=== PATIENT | male | born 1945 | race Two or more races ===

== ENCOUNTER 2017-01-12 14:09 | Emergency (ER) | payer OTHER ==
[2017-01-12 14:20] VITALS: BP 126/69; PULSE 73; TEMP 98.2; BMI 28.3
[2017-01-12] MEDS ORDERED: ACETAMINOPHEN WITH CODEINE 300MG/30MG TABLET PO ONE (15:18)
[2017-01-12] MEDS ORDERED: PSEUDOEPHEDRINE HCL 30 MG TABLET PO ONE (15:18)
[2017-01-12] MEDS ORDERED: guaiFENesin 200 MG/10 ML 10 ML UNIT-DOSE CUPS PO ONE (15:24)
[2017-01-12] MEDS ORDERED: guaiFENesin 200 MG/10 ML 10 ML UNIT-DOSE CUPS ONE (15:29)
[2017-01-12] MEDS ORDERED: PSEUDOEPHEDRINE HCL 60 MG TABLET ONE (15:29)
--- NOTE | 2017-01-12 15:52 | PDOC ---
History of Present Illness - General Chief Complaint: Cold Symptoms Stated Complaint: SORE THROAT Time Seen by Provider: 01/12/17 15:16 History Source: Patient Exam Limitations: No Limitations - History of Present Illness Initial Comments: 01/12/17 15:47 CHIEF COMPLAINT: Throat pain HISTORY OF PRESENT ILLNESS: This is a 69 year old female with a history of HTN and hypercholesterolemia who presents for evaluation of right ear pain, throat pain, dry cough, bilateral eye redness/itching/discharge, and nasal congestion. Symptoms started about one week ago after returning from [place]. Her is being seen here with similar symptoms. She denies fevers/chills, chest pain, shortness of breath, or any other symptoms. V/s on arrival are unremarkable. Past History - Travel Traveled outside of the country in the last 30 days: Yes If so, where?: [facility] - Past Medical History Allergies/Adverse Reactions: Allergies Allergy/AdvReac Type Severity Reaction Status Date / Time No Known Allergies Allergy Verified 01/12/17 14:17 Home Medications: Ambulatory Orders Meclizine HCl [Bonine] 25 mg PO Q8H PRN #30 tab 04/11/15 Primidone [Mysoline] 250 mg PO DAILY 03/06/16 Azithromycin [Zithromax Tri-Roberto (3 DAYS) -] 500 mg PO DAILY #3 tablet 01/12/17 Other medical history: DENIES. - Immunization History Immunization Up to Date: Yes - Psycho/Social/Smoking Cessation Hx Anxiety: No Suicidal Ideation: No Smoking History: Never smoked Have you smoked in the past 12 months: No Hx Alcohol Use: No Drug/Substance Use Hx: No Substance Use Type: None Review of Systems - Review of Systems Constitutional: No: Chills, Fever, Night Sweats, Unexplained wgt Loss HEENTM: Yes: Ear Pain (left) Respiratory: Yes: Cough (dry). No: Shortness of Breath, SOB with Exertion Cardiac (ROS): No: Chest Pain, Edema, Palpitations ABD/GI: No: Symptoms Reported : No: Symptoms Reported Musculoskeletal: No: Symptoms Reported Neurological: No: Symptoms reported *Physical Exam - Vital Signs Last Vital Signs Temp Pulse Resp BP Pulse Ox 98.2 F 73 18 126/69 98 01/12/17 14:17 01/12/17 14:17 01/12/17 14:17 01/12/17 14:17 01/12/17 14:17 - Physical Exam General Appearance: Yes: Nourished, Appropriately Dressed HEENT: positive: Pharyngeal Erythema, Nasal Congestion, Rhinorrhea. negative: Tonsillar Exudate, TM Bulging, TM Erythema Neck: positive: Supple Respiratory/Chest: positive: Lungs Clear, Normal Breath Sounds Cardiovascular: positive: Regular Rhythm, Regular Rate, S1, S2 Gastrointestinal/Abdominal: positive: Soft. 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, Fully Oriented, Alert ED Treatment Course - Medications Given in the ED: ED Medications Discontinued Medications Generic Name Dose Route Start Last Admin Trade Name Maryana PRN Reason Stop Dose Admin Acetaminophen/Codeine Phosphate 1 tab 01/12/17 15:18 01/12/17 15:38 Tylenol # 3 - PO 01/12/17 15:19 Not Given ONCE ONE Guaifenesin 10 ml 01/12/17 15:24 01/12/17 15:36 Robitussin - PO 01/12/17 15:25 10 ml ONCE ONE Administration Pseudoephedrine HCl 30 mg 01/12/17 15:18 01/12/17 15:36 Sudafed - PO 01/12/17 15:19 30 mg ONCE ONE Administration Medical Decision Making - Medical Decision Making 01/12/17 15:49 A/P: 69 year old male with multiple symptoms including ear pain, throat pain, nasal congestion, , and cough. 1. Flu swab 2. Rapid strep 3. Robitussin for cough 4. Sudafed for congestion 5. Tylenol for pain 6. Re-assess *DC/Admit/Observation/Transfer Diagnosis at time of Disposition: Bronchitis - Discharge Dispostion Disposition: HOME Condition at time of disposition: Stable - Prescriptions Prescriptions: Azithromycin [Zithromax Tri-Roberto (3 DAYS) -] 500 mg PO DAILY #3 tablet - Referrals Referrals: Sarah Barron [Primary Care Provider] - - Patient Instructions Printed Discharge Instructions: DI for Acute Bronchitis Additional Instructions: -Take antibiotics as prescribed -Use [id number] Sudafed as needed for congestion and Robitussin as needed for cough -Follow up with your primary care doctor -Return here for difficulty breathing or any other concerning symptoms - Post Discharge Activity
[2017-01-12] MEDS ORDERED: ACETAMINOPHEN 325 MG TABLET (FP) PO ONE (15:53)
[2017-01-12] MEDS ORDERED: ACETAMINOPHEN 325 MG TABLET (FP) ONE (15:58)
== END 2017-01-12 16:36 | disposition home or self-care (01) ==
LOC: JERFT 14:09
DX: J40 Bronchitis, not specified as acute or chronic (principal)
CPT/HCPCS: 87070; 87430; 87804; 99281-25

== ENCOUNTER 2017-01-16 09:22 | Emergency (ER) | payer OTHER ==
[2017-01-16 09:30] VITALS: BP 107/75; PULSE 84; TEMP 98.3; BMI 28.3
--- NOTE | 2017-01-16 10:02 | PDOC ---
History of Present Illness - General Chief Complaint: Cold Symptoms Stated Complaint: cough, want new prescription Time Seen by Provider: 01/16/17 09:52 History Source: Patient Exam Limitations: No Limitations - History of Present Illness Initial Comments: 01/16/17 09:56 Patient is a 71-year-old male, with no past medical history, was seen in the emergency department on 01/12/2017 for sore throat and cough patient was given a azithromycin 500 mg by mouth for 3 days, states that symptoms are still persisting unable to sleep at night because of cough. Reports that symptoms started after returning from [facility], Cough is productive with green sputum. Patient denies any fever, no nausea vomiting, no constipation or diarrhea. with similar symptoms. Past Medical History: Denies. Allergies: No known allergies Medications: Azithromycin Family History: Non-contributory Social History: Denies smoking, alcohol use, or IVDU Review of Systems GENERAL/CONSTITUTIONAL: No fever or chills. No weakness. No weight change. HEAD, EYES, EARS, NOSE AND THROAT: No change in vision. No ear pain or discharge. No sore throat. CARDIOVASCULAR: No chest pain or shortness of breath. RESPIRATORY: +Cough, no wheezing, or hemoptysis. GASTROINTESTINAL: No nausea, vomiting, diarrhea or constipation. No rectal bleeding. GENITOURINARY: No dysuria, frequency, or change in urination. MUSCULOSKELETAL: No joint or muscle swelling or pain. No neck or back pain. SKIN : No rash or easy bruising. NEUROLOGIC: No headache, vertigo, loss of consciousness, or loss of sensation. PSYCHIATRIC: No depression or anxiety. ENDOCRINE: No increased thirst. No abnormal weight change. HEMATOLOGIC/LYMPHATIC: No anemia, easy bleeding, or history of blood clots. ALLERGIC/IMMUNOLOGIC: No hives or skin allergy. No latex allergy. Physical Exam: GENERAL: The patient is awake, alert, and fully oriented, in no acute distress. EYES: Pupils equal, round and reactive to light, extraocular movements intact, sclera anicteric, conjunctiva clear. ENT: Ears normal, nares patent, oropharynx clear without exudates. Moist mucous membranes. No uvula deviation NECK: Normal range of motion, supple without lymphadenopathy, JVD, or masses. LUNGS: Breath sounds equal, clear to auscultation bilaterally. Bronchospasm when taking a deep breath, No wheezes, and no crackles. HEART: Regular rate and rhythm, normal S1 and S2 without murmur, rub or gallop. ABDOMEN: Soft, nontender, normoactive bowel sounds. No guarding, no rebound. No masses. No bruising or abrasions MUSCULOSKELETAL: Normal range of motion, no edema. No clubbing or cyanosis. No cords, erythema, or tenderness. No CVA Tenderness with fist. NEUROLOGICAL: Cranial nerves II through XII grossly intact. Normal speech, normal gait. SKIN: Warm, Dry, normal turgor, no rashes or lesions noted. 01/16/17 10:42 Past History - Past Medical History Allergies/Adverse Reactions: Allergies Allergy/AdvReac Type Severity Reaction Status Date / Time No Known Allergies Allergy Verified 01/16/17 09:30 Home Medications: Ambulatory Orders Meclizine HCl [Bonine] 25 mg PO Q8H PRN #30 tab 04/11/15 Primidone [Mysoline] 250 mg PO DAILY 03/06/16 Promethazine HCl [Phenergan Plain 6.25 MG/5 ML -] 5 ml PO TID #90 ml 01/16/17 Other medical history: denies - Immunization History Immunization Up to Date: Yes - Psycho/Social/Smoking Cessation Hx Anxiety: No Suicidal Ideation: No Smoking History: Never smoked Have you smoked in the past 12 months: No Information on smoking cessation initiated: No Hx Alcohol Use: No Drug/Substance Use Hx: No Substance Use Type: None *Physical Exam - Vital Signs Last Vital Signs Temp Pulse Resp BP Pulse Ox 98.3 F 84 18 107/75 98 01/16/17 09:27 01/16/17 09:27 01/16/17 09:27 01/16/17 09:27 01/16/17 09:27 ED Treatment Course - RADIOLOGY Radiology Studies Ordered: Category Date Time Status CHEST PA & LAT [RAD] Stat Radiology 01/16/17 09:55 Ordered Medical Decision Making - Medical Decision Making 01/16/17 09:59 A/P: Patient with persistent cough, denies sore throat, states that cough is keeping him up at night. Was given azithromycin 500 mg by mouth for 3 days and states that cough still persists. Patient has been afebrile, is concerned because fevers keeping him up at night 01/16/17 10:04 01/16/17 10:46 Chest x-rays negative for acute cardiopulmonary disease, no evidence of pneumonia. We will DC Patient with cough medicine, follow-up with primary care doctor if symptoms persist. If any fever, increased cough, or any other concerns return to ER *DC/Admit/Observation/Transfer Diagnosis at time of Disposition: Cough - Discharge Dispostion Disposition: HOME Condition at time of disposition: Good Admit: No - Prescriptions Prescriptions: Promethazine HCl [Phenergan Plain 6.25 MG/5 ML -] 5 ml PO TID #90 ml - Referrals Referrals: Sarah Barron [Primary Care Provider] - - Patient Instructions Printed Discharge Instructions: DI for Viral Upper Respiratory Infection -- Adult Additional Instructions: Your x-rays negative for pneumonia. Viral illness may persist for over a week or 2 Recommend follow-up with her primary care doctor if symptoms persist after 7 days from initial onset I have given you a prescription for cough medicine please take one hour prior to sleep
== END 2017-01-16 11:20 | disposition home or self-care (01) ==
LOC: JERFT 09:22
DX: R05 Cough (principal)
CPT/HCPCS: 71020-TC; 99281-25

== ENCOUNTER 2017-01-19 12:21 | Emergency (ER) | payer OTHER ==
[2017-01-19 12:28] VITALS: BP 109/68; PULSE 76; TEMP 98; BMI 28.3
--- NOTE | 2017-01-19 13:35 | PDOC ---
History of Present Illness - General Chief Complaint: RX Refill Stated Complaint: RX REFILL FOR COUGH Time Seen by Provider: 01/19/17 13:04 History Source: Patient Exam Limitations: No Limitations - History of Present Illness Initial Comments: 01/19/17 13:30 This is a 71-year-old male without significant past medical history who presents today with chronic cough lasting for more than one week. Reports the cough is worse in the morning and improves throughout the day. He was seen and evaluated in this emergency department and prescribed Phenergan cough syrup which relieved the cough and make patient feel better. He has an appointment with his primary doctor in February. He is requesting a refill of his Phenergan cough syrup until he can see his doctor then. Past History - Past Medical History Allergies/Adverse Reactions: Allergies Allergy/AdvReac Type Severity Reaction Status Date / Time No Known Allergies Allergy Verified 01/19/17 12:28 Home Medications: Ambulatory Orders Meclizine HCl [Bonine] 25 mg PO Q8H PRN #30 tab 04/11/15 Primidone [Mysoline] 250 mg PO DAILY 03/06/16 Promethazine HCl [Phenergan Plain 6.25 MG/5 ML -] 5 ml PO TID #90 ml 01/19/17 Other medical history: DENIES - Immunization History Immunization Up to Date: Yes - Psycho/Social/Smoking Cessation Hx Anxiety: No Suicidal Ideation: No Smoking History: Never smoked Have you smoked in the past 12 months: No Information on smoking cessation initiated: No Hx Alcohol Use: No Drug/Substance Use Hx: No Substance Use Type: None Review of Systems - Review of Systems Able to Perform ROS?: Yes Is the patient limited Turkmen proficient: No Constitutional: No: Symptoms Reported HEENTM: No: Symptoms Reported Respiratory: Yes: See HPI Cardiac (ROS): No: Symptoms Reported ABD/GI: No: Symptoms Reported : No: Symptoms Reported Musculoskeletal: No: Symptoms Reported Integumentary: No: Symptoms Reported Neurological: No: Symptoms reported Endocrine: No: Symptoms Reported *Physical Exam - Vital Signs Last Vital Signs Temp Pulse Resp BP Pulse Ox 98 F 76 18 109/68 98 01/19/17 12:26 01/19/17 12:26 01/19/17 12:26 01/19/17 12:26 01/19/17 12:26 - Physical Exam General Appearance: Yes: Appropriately Dressed. No: Apparent Distress HEENT: positive: EOMI, CATRACHITA Neck: positive: Trachea midline, Supple Respiratory/Chest: positive: Lungs Clear, Normal Breath Sounds. negative: Respiratory Distress, Accessory Muscle Use, Crackles, Rales, Wheezing Cardiovascular: positive: Regular Rhythm, Regular Rate, S1, S2. negative: Edema , JVD, Murmur Gastrointestinal/Abdominal: positive: Normal Bowel Sounds, Soft. 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 Reports the cough is worse in the morning and improves throughout the day. He was seen and evaluated in this emergency department and prescribed Phenergan cough syrup which relieved the cough and make patient feel better. He has an appointment with his primary doctor in February. He is requesting a refill of his Phenergan cough syrup until he can see his doctor then. He is refusing xrays and a complete evaluation of cough. P: Rx for phenergan discharge *DC/Admit/Observation/Transfer Diagnosis at time of Disposition: Cough - Discharge Dispostion Disposition: HOME Condition at time of disposition: Stable Admit: No - Prescriptions Prescriptions: Promethazine HCl [Phenergan Plain 6.25 MG/5 ML -] 5 ml PO TID #90 ml - Patient Instructions Printed Discharge Instructions: DI for Cough -- Adult
== END 2017-01-19 13:47 | disposition home or self-care (01) ==
LOC: JERFT 12:21
DX: R05 Cough (principal)
CPT/HCPCS: 99281-25

== ENCOUNTER 2017-05-26 10:39 | Emergency (ER) | payer OTHER ==
[2017-05-26 10:43] VITALS: TEMP 97.6; BMI 28.3
[2017-05-26] MEDS ORDERED: MECLIZINE HCL 25 MG TABLET (FP) PO ONE (11:39)
[2017-05-26 11:41] LABS: BASO % 0.7 % (0-2.0); EOS % 4.5 % (0-4.5); HEMATOCRIT 46.3 % (35.4-49); HEMOGLOBIN 15.4 GM/dL (11.7-16.9); MCH 30.8 pg (25.7-33.7); MCHC 33.2 g/dl (32.0-35.9); MEAN CELL VOLUME 92.6 fl (80-96); MEAN PLT VOLUME 8.1 fl (7.5-11.1); MONO % 9.7 % (3.8-10.2); NEUT % 59.1 % (42.8-82.8); PLATELET COUNT 207 K/MM3 (134-434); RDW 13.8 % (11.9-15.9); WHITE BLOOD COUNT 6.5 K/mm3 (4.0-10.0)
[2017-05-26 11:41] LABS: URINE APPEARANCE CLOUDY; URINE BILIRUBIN NEGATIVE (NEGATIVE); URINE BLOOD NEGATIVE (NEGATIVE); URINE COLOR AMBER; URINE GLUCOSE (UA) NEGATIVE (NEGATIVE); URINE KETONE NEGATIVE (NEGATIVE); URINE NITRITE NEGATIVE (NEGATIVE); URINE PROTEIN NEGATIVE (NEGATIVE); URINE UROBILINOGEN NEGATIVE mg/dL (0.2-1.0)
[2017-05-26 11:42] LABS: URINE LEUK ESTERASE 2+ (NEGATIVE)
[2017-05-26 11:43] LABS: URINE MUCUS MANY
[2017-05-26] MEDS ORDERED: MECLIZINE HCL 25 MG TABLET (FP) ONE (11:55)
--- NOTE | 2017-05-26 11:58 | PDOC ---
*Physical Exam - Vital Signs Last Vital Signs Temp Pulse Resp BP Pulse Ox 97.6 F 82 20 134/79 100 05/26/17 10:40 05/26/17 10:40 05/26/17 10:40 05/26/17 10:40 05/26/17 11:24 - Physical Exam Comments: 05/26/17 11:58 The patient was examined by [JULIET Holguin] under my direct supervision. I personally evaluated the patient. I concur with the above findings and the plan of care. ED Treatment Course - LABORATORY CBC & Chemistry Diagram: 05/26/17 11:20 05/26/17 11:20 - ADDITIONAL ORDERS Additional order review: Laboratory Results 05/26/17 11:12 Urine Color Charla Urine Appearance Cloudy Urine pH 5.0 D Ur Specific [place] 1.027 Urine Protein Negative Urine Glucose (UA) Negative Urine Ketones Negative Urine Blood Negative Urine Nitrite Negative Urine Bilirubin Negative Urine Urobilinogen Negative Ur Leukocyte Esterase 2+ H Urine WBC (Auto) 7 Urine RBC (Auto) 12 Urine Mucus Many 05/26/17 11:20 RBC 5.00 MCV 92.6 MCHC 33.2 RDW 13.8 MPV 8.1 Neutrophils % 59.1 Lymphocytes % 26.0 Monocytes % 9.7 Eosinophils % 4.5 Basophils % 0.7 *DC/Admit/Observation/Transfer - Referrals Referrals: Sarah Barron [Primary Care Provider] - - Patient Instructions - Post Discharge Activity
[2017-05-26] MEDS ORDERED: SODIUM CHLORIDE 500 ML IV STA (12:04)
--- NOTE | 2017-05-26 12:04 | PDOC ---
History of Present Illness - General Chief Complaint: Lightheaded Stated Complaint: WEAKNESS, DIZZINESS Time Seen by Provider: 05/26/17 11:17 History Source: Patient - History of Present Illness Timing/Duration: reports: other Severity: Yes: moderate Associated Symptoms: reports: trouble walking. denies: fever/chills, loss of consciousness, nausea/vomiting, paresthesia, ringing in ears, slurred speech, vision changes, weakness Past History - Past Medical History Allergies/Adverse Reactions: Allergies Allergy/AdvReac Type Severity Reaction Status Date / Time No Known Allergies Allergy Verified 05/26/17 10:43 Home Medications: Ambulatory Orders Meclizine HCl [Antivert -] 25 mg PO QID #28 tablet 05/26/17 COPD: No - Immunization History Immunization Up to Date: Yes - Suicide/Smoking/Psychosocial Hx Smoking History: Never smoked Have you smoked in the past 12 months: No Hx Alcohol Use: No Drug/Substance Use Hx: No Substance Use Type: None Review of Systems - Review of Systems Constitutional: No: Chills, Fever Respiratory: No: Shortness of Breath Cardiac (ROS): Yes: Lightheadedness. No: Chest Pain, Palpitations, Syncope ABD/GI: No: Nausea, Vomiting Neurological: Yes: Dizziness. No: Headache, Weakness *Physical Exam - Vital Signs Last Vital Signs Temp Pulse Resp BP Pulse Ox 97.6 F 82 20 134/79 100 05/26/17 10:40 05/26/17 10:40 05/26/17 10:40 05/26/17 10:40 05/26/17 11:24 - Physical Exam General Appearance: Yes: Appropriately Dressed. No: Apparent Distress HEENT: positive: Normal Voice Neck: positive: Supple Respiratory/Chest: positive: Lungs Clear, Normal Breath Sounds. negative: Respiratory Distress Cardiovascular: positive: Regular Rate, S1, S2 Gastrointestinal/Abdominal: positive: Soft. negative: Tender Extremity: positive: Normal Inspection Integumentary: positive: Dry, Warm Neurologic: positive: Fully Oriented, Alert, Normal Mood/Affect, Motor Strength 5/5, Finger to Nose. negative: Facial Droop (no nystagmus, Morgan intact, no drift, no ataxia), Confused, Disoriented Heart Score/ECG Review - ECG Intrepretation Comment:: 05/26/17 12:49 Twelve-lead EKG was performed and reviewed by me. There is normal sinus rhythm with a normal rate. The axis is normal. The intervals are normal. There are no ST or T wave abnormalities. Impression: Normal twelve-lead EKG ED Treatment Course - LABORATORY CBC & Chemistry Diagram: 05/26/17 11:20 05/26/17 11:20 - ADDITIONAL ORDERS Additional order review: Laboratory Results 05/26/17 11:12 Urine Color Charla Urine Appearance Cloudy Urine pH 5.0 D Ur Specific [place] 1.027 Urine Protein Negative Urine Glucose (UA) Negative Urine Ketones Negative Urine Blood Negative Urine Nitrite Negative Urine Bilirubin Negative Urine Urobilinogen Negative Ur Leukocyte Esterase 2+ H Urine WBC (Auto) 7 Urine RBC (Auto) 12 Urine Mucus Many 05/26/17 11:20 RBC 5.00 MCV 92.6 MCHC 33.2 RDW 13.8 MPV 8.1 Neutrophils % 59.1 Lymphocytes % 26.0 Monocytes % 9.7 Eosinophils % 4.5 Basophils % 0.7 - RADIOLOGY Radiology Studies Ordered: Category Date Time Status CHEST PA & LAT [RAD] Stat Radiology 05/26/17 11:19 Taken Medical Decision Making - Medical Decision Making 05/26/17 11:59 71-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 Patient reports lightheadedness that started 5 days ago, worse with positional change. Does not complain of room spinning specifically at this time, but states current symptoms similar to his previous vertigo. Also complaining of feeling off balance when he walks. No headache, nausea, vomiting, visual changes, focal weakness, chest pain or shortness of breath. No recent URI. Patient asymptomatic lying on stretcher at this time See exam Dizziness Multiple ED visits in past for same w/ neg CTs and tx w/ meclizine for vertigo Stable w no focal deficiyts -melissa check labs, orthostatics -trial of meclizine -no indication for neuroimaging at this time -reassess 05/26/17 12:03 05/26/17 13:30 Labs unremarkable. Patient reports feeling significantly better with meclizine and appears comfortable and tolerating a tray of food in ED. Will DC with prescription for meclizine and encourage PMD follow-up next week. Reasons to return discussed with patient and *DC/Admit/Observation/Transfer Diagnosis at time of Disposition: Dizziness - Discharge Dispostion Disposition: HOME Condition at time of disposition: Improved - Prescriptions Prescriptions: Meclizine HCl [Antivert -] 25 mg PO QID #28 tablet - Referrals Referrals: Sarah Barron [Primary Care Provider] - - Patient Instructions Printed Discharge Instructions: Vertigo Additional Instructions: Medication as directed and follow-up with your doctor next week. If symptoms worsen, return to ER immediately - Post Discharge Activity
[2017-05-26 12:07] LABS: ALBUMIN 3.6 g/dl (3.4-5.0); ANION GAP 7 (8-16); BILIRUBIN,TOTAL 0.6 mg/dL (0.2-1.0); BLOOD UREA NITROGEN 16 mg/dL (7-18); CHLORIDE 107 mmol/L (98-107); CO2 27 mmol/L (21-32); CREATININE 1.1 mg/dL (0.7-1.3); GLUCOSE,RANDOM 108 mg/dL (74-106); POTASSIUM 3.8 mmol/L (3.5-5.1); SGOT/AST 24 U/L (15-37); SGPT/ALT 37 U/L (12-78); SODIUM 141 mmol/L (136-145); TOT PROT 7.2 g/dl (6.4-8.2)
[2017-05-26 12:09] LABS: ALK PHOS 89 U/L (45-117)
[2017-05-26 14:09] VITALS: BP 108/69; PULSE 74
--- NOTE | 2017-05-26 16:29 | EKG ---
Test Reason : Blood Pressure : / mmHG Vent. Rate : 071 BPM Atrial Rate : 071 BPM P-R Int : 202 ms QRS Dur : 084 ms QT Int : 386 ms P-R-T Axes : 043 034 028 degrees QTc Int : 419 ms NORMAL SINUS RHYTHM LOW VOLTAGE QRS BORDERLINE ECG WHEN COMPARED WITH ECG OF 06-MAR-2016 04:08, NO SIGNIFICANT CHANGE WAS FOUND Confirmed by RAH OH MD ([id number]) on 05/26/2017 4:28:57 PM Referred By: Confirmed By:RAH OH MD
== END 2017-05-26 14:09 | disposition home or self-care (01) ==
LOC: JER 10:39
PROC: 3E0337Z Introduction of Electrolytic and Water Balance Substance into Peripheral Vein, Percutaneous Approach (ICD-10-PCS; principal; 2017-05-26)
DX: H81.10 Benign paroxysmal vertigo, unspecified ear (principal)
CPT/HCPCS: 36415; 71046-TC; 80053; 81003; 81015; 82550; 84484; 85025; 93005; 93010; 96360; 99283-25

== ENCOUNTER 2017-12-15 08:58 | Emergency (ER) | payer OTHER ==
[2017-12-15 09:03] VITALS: TEMP 98; BMI 26.7
--- NOTE | 2017-12-15 09:18 | PDOC ---
History of Present Illness - General Chief Complaint: Lightheaded Stated Complaint: DIZZINESS Time Seen by Provider: 12/15/17 09:18 History Source: Patient Exam Limitations: No Limitations - History of Present Illness Initial Comments: 12/15/17 10:07 CHIEF COMPLAINT: Dizziness HISTORY OF PRESENT ILLNESS: This is a 72-year-old male with a history of vertigo who presents complaining of sudden onset of dizziness ("room spinning") at 8 PM last night. This morning, he developed vomiting. Both dizziness and nausea have since subsided. He denies headache, visual changes, chest pain, shortness of breath, abdominal pain, or any other symptoms. Vital signs on arrival are unremarkable. REVIEW OF SYSTEMS: GENERAL/CONSTITUTIONAL: No fever or chills. No weakness. No weight change. HEAD, EYES, EARS, NOSE AND THROAT: No change in vision. No ear pain or discharge. No sore throat. CARDIOVASCULAR: No chest pain or palpitations. RESPIRATORY: No cough, wheezing, or shortness of breath. GASTROINTESTINAL: Nausea/vomiting. No diarrhea or constipation. GENITOURINARY: No dysuria, frequency, or change in urination. MUSCULOSKELETAL: No joint or muscle swelling or pain. No neck or back pain. SKIN: No rash or easy bruising. NEUROLOGIC: See HPI. PSYCHIATRIC: No depression or anxiety. ENDOCRINE: No increased thirst. No abnormal weight change. HEMATOLOGIC/LYMPHATIC: No anemia, easy bleeding, or history of blood clots. ALLERGIC/IMMUNOLOGIC: No hives or skin allergy. No latex allergy. PHYSICAL EXAM: GENERAL: The patient is awake, alert, and fully oriented, in no acute distress. HEAD: Normal with no signs of trauma. ENT: Pupils equal, round and reactive to light, extraocular movements intact, sclera anicteric, conjunctiva clear. Neck supple. LUNGS: Clear to auscultation bilaterally. Normal excursion. No respiratory distress or use of accessory muscles. CV: RRR, S1/S2, no MRG. Cap refill < 2 sec. ABDOMEN: Soft, non-distended, non-tender. EXTREMITIES: Normal range of motion, no edema. NEUROLOGICAL: Normal speech, normal gait. CN II-XII grossly intact. NIHSS=0. PSYCH: Normal mood, normal affect. SKIN: Warm, dry, normal turgor, no rashes or lesions noted. 12/15/17 10:08 Past History - Past Medical History Allergies/Adverse Reactions: Allergies Allergy/AdvReac Type Severity Reaction Status Date / Time No Known Allergies Allergy Verified 12/15/17 09:03 Home Medications: Ambulatory Orders Meclizine HCl [Antivert -] 25 mg PO QID PRN #20 tablet 12/15/17 Primidone 50 mg PO TID 12/15/17 COPD: No - Immunization History Immunization Up to Date: Yes - Suicide/Smoking/Psychosocial Hx Smoking History: Never smoked Have you smoked in the past 12 months: No Hx Alcohol Use: No Drug/Substance Use Hx: No Substance Use Type: None *Physical Exam - Vital Signs Last Vital Signs Temp Pulse Resp BP Pulse Ox 98 F 65 18 118/72 98 12/15/17 09:00 12/15/17 09:00 12/15/17 09:00 12/15/17 09:00 12/15/17 09:00 ED Treatment Course - LABORATORY CBC & Chemistry Diagram: 12/15/17 09:37 12/15/17 09:37 Medical Decision Making - Medical Decision Making 12/15/17 10:09 A/P: 72-year-old male with history of vertigo presenting with what he states are his typical vertigo symptoms. Does not have meclizine at home. Symptoms currently improved without intervention. No focal neurologic deficits. 1. EKG 2. Labs including CBC, CMP, troponin 3. IV fluids and Reglan for symptomatic relief 4. No indication for neuroimaging at this time. 12/15/17 12:02 EKG sinus omayra 56bpm, no ischemic changes Trop neg Patient feels well, orthostatics negative, ambulating unassisted, tolerating PO fluids Will rx meclizine Followup instructions and return precautions reviewed *DC/Admit/Observation/Transfer Diagnosis at time of Disposition: Vertigo - Discharge Dispostion Disposition: HOME Condition at time of disposition: Stable Decision to Admit order: No - Prescriptions Prescriptions: Meclizine HCl [Antivert -] 25 mg PO QID PRN #20 tablet PRN Reason: Vertigo - Referrals Referrals: Leisa Banegas MD [Primary Care Provider] - 3 days - Patient Instructions Printed Discharge Instructions: DI for Vertigo Additional Instructions: -Rest and stay well-hydrated -Take Meclizine as needed for vertigo symptoms -Follow up with Dr. Banegas early next week -Return for persistent dizziness, headaches, weakness, change in speech, chest pain, or any other concerning symptoms - Post Discharge Activity
[2017-12-15] MEDS ORDERED: METOCLOPRAMIDE HCL INJECTION 10 MG/2 ML VIAL IVPB ONE (09:28)
[2017-12-15] MEDS ORDERED: METOCLOPRAMIDE HCL INJECTION 10 MG/2 ML VIAL ONE (09:39)
[2017-12-15 10:03] LABS: EOS % 2.8 % (0-4.5); HEMATOCRIT 43.9 % (35.4-49); LYMPH % 19.3 % (8-40); MCH 31.5 pg (25.7-33.7); MCHC 34.1 g/dl (32.0-35.9); MEAN CELL VOLUME 92.2 fl (80-96); MEAN PLT VOLUME 8.2 fl (7.5-11.1); MONO % 7.3 % (3.8-10.2); NEUT % 69.6 % (42.8-82.8); PLATELET COUNT 206 K/MM3 (134-434); RBC 4.76 M/mm3 (4.00-5.60); RDW 13.8 % (11.9-15.9); WHITE BLOOD COUNT 5.6 K/mm3 (4.0-10.0)
[2017-12-15] MEDS ORDERED: SODIUM CHLORIDE 1,000 ML IV SCH (10:15)
[2017-12-15 10:32] LABS: INR 0.97 (0.83-1.09)
[2017-12-15 10:36] LABS: URINE APPEARANCE CLEAR; URINE BILIRUBIN NEGATIVE (<2.0 mg/dL); URINE COLOR YELLOW; URINE GLUCOSE (UA) NEGATIVE (NEGATIVE); URINE KETONE NEGATIVE (NEGATIVE); URINE LEUK ESTERASE TRACE (NEGATIVE); URINE NITRITE NEGATIVE (NEGATIVE); URINE PROTEIN NEGATIVE (NEGATIVE); URINE UROBILINOGEN NEGATIVE mg/dL (0.2-1.0)
[2017-12-15 10:44] LABS: ALBUMIN 3.5 g/dl (3.4-5.0); ANION GAP 9 (8-16); BLOOD UREA NITROGEN 11 mg/dL (7-18); CALCIUM 8.5 mg/dL (8.5-10.1); CHLORIDE 106 mmol/L (98-107); CO2 25 mmol/L (21-32); GLUCOSE,RANDOM 93 mg/dL (74-106); POTASSIUM 4.5 mmol/L (3.5-5.1); SODIUM 140 mmol/L (136-145)
[2017-12-15 10:47] LABS: ALK PHOS 98 U/L (45-117); BILIRUBIN,TOTAL 0.3 mg/dL (0.2-1.0); SGOT/AST 18 U/L (15-37); SGPT/ALT 24 U/L (12-78); TOT PROT 6.9 g/dl (6.4-8.2)
[2017-12-15 10:56] LABS: URINE MUCUS MANY
[2017-12-15 11:59] VITALS: BP 106/67; PULSE 53
--- NOTE | 2017-12-16 08:59 | EKG ---
Test Reason : Blood Pressure : / mmHG Vent. Rate : 056 BPM Atrial Rate : 056 BPM P-R Int : 198 ms QRS Dur : 082 ms QT Int : 410 ms P-R-T Axes : 028 021 029 degrees QTc Int : 395 ms SINUS BRADYCARDIA LOW VOLTAGE QRS BORDERLINE ECG WHEN COMPARED WITH ECG OF 26-MAY-2017 11:18, NO SIGNIFICANT CHANGE WAS FOUND Confirmed by SOWMYA LINDSAY MD ([id number]) on 12/16/2017 8:58:51 AM Referred By: Confirmed By:SOWMYA LINDSAY MD
== END 2017-12-15 12:13 | disposition home or self-care (01) ==
LOC: JER 08:58
PROC: 3E033GC Introduction of Other Therapeutic Substance into Peripheral Vein, Percutaneous Approach (ICD-10-PCS; principal; 2017-12-15)
PROC: 3E0337Z Introduction of Electrolytic and Water Balance Substance into Peripheral Vein, Percutaneous Approach (ICD-10-PCS; 2017-12-15)
DX: R42 Dizziness and giddiness (principal)
CPT/HCPCS: 36415; 80053; 81003; 81015; 84484; 85025; 85610; 93005; 93010; 99284-25; J7030

== ENCOUNTER 2018-07-19 09:48 | Emergency (ER) | payer OTHER ==
[2018-07-19 10:01] VITALS: BMI 26.5
--- NOTE | 2018-07-19 11:56 | PDOC ---
History of Present Illness <Abilio Caraballo - Last Filed: 07/19/18 13:05> - History of Present Illness Initial Comments: 07/19/18 12:06 The patient is a 72 year old male, with a significant PMH of benign essential tremor, vertigo, who presents to the emergency department with 3 days of vertigo. The patient states the episodes of vertigo occur when he is standing up and moving around, a/w nausea. The patient states he has history of vertigo for which he normally takes Meclizine with relief of his symptoms. He states initially, the vertigo did not respond to meclizine but eventually resolved last night after he took another dose of meclizine. The patient states at presentation, he is no longer experiencing the vertigo symptoms. However, the patient states he came to the ED today as he is concerned of future vertigo episodes. He states he did not see his PMD because they are in the [place] and it is faster to come here. The patient states his vertigo is associated with foods he eats such as chocolate or high salt content which he reports may be related to the past 2 days of vertigo. On review of symptoms, pt reports a 1 second episode of sternal, non radiating CP 2 days ago that has not recurred since then and self resolved. CP occurred while he was standing in the kitchen. The patient denies SOB or headache. Denies weakness or numbness. Denies fever, vomit, diarrhea and constipation. Denies dysuria, frequency, urgency and hematuria. Allergies: NKDA <Star Castrejon - Last Filed: 07/19/18 15:07> - General Chief Complaint: Lightheaded Stated Complaint: DIZZYNESS Time Seen by Provider: 07/19/18 10:41 Past History <Abilio Caraballo - Last Filed: 07/19/18 13:05> - Past Medical History COPD: No - Immunization History Immunization Up to Date: Yes - Suicide/Smoking/Psychosocial Hx Smoking History: Never smoked Have you smoked in the past 12 months: No Information on smoking cessation initiated: No Hx Alcohol Use: No Drug/Substance Use Hx: No Substance Use Type: None <Star Castrejon - Last Filed: 07/19/18 15:07> - Past Medical History Allergies/Adverse Reactions: Allergies Allergy/AdvReac Type Severity Reaction Status Date / Time No Known Allergies Allergy Verified 07/19/18 09:58 Home Medications: Ambulatory Orders Meclizine HCl [Antivert -] 25 mg PO QID PRN #20 tablet 12/15/17 Primidone 50 mg PO TID 12/15/17 Review of Systems - Review of Systems Comments:: 07/19/18 12:41 GENERAL/CONSTITUTIONAL: No fever or chills. No weakness. HEAD, EYES, EARS, NOSE AND THROAT: No change in vision. No ear pain or discharge. No sore throat. GASTROINTESTINAL: No nausea, vomiting, diarrhea or constipation. GENITOURINARY: No dysuria, frequency, or change in urination. CARDIOVASCULAR: No chest pain or shortness of breath. RESPIRATORY: No cough, wheezing, or hemoptysis. MUSCULOSKELETAL: No joint or muscle swelling or pain. No neck or back pain. SKIN: No rash NEUROLOGIC: No headache, vertigo, loss of consciousness, or change in strength/ sensation. ENDOCRINE: No increased thirst. No abnormal weight change. HEMATOLOGIC/LYMPHATIC: No anemia, easy bleeding, or history of blood clots. ALLERGIC/IMMUNOLOGIC: No hives or skin allergy. <Pavel Castrejonmna - Last Filed: 07/19/18 15:07> *Physical Exam - Vital Signs Last Vital Signs Temp Pulse Resp BP Pulse Ox 97.5 F L 85 16 97/66 98 07/19/18 09:58 07/19/18 09:58 07/19/18 09:58 07/19/18 09:58 07/19/18 09:58 <Abilio Caraballo - Last Filed: 07/19/18 13:05> - Vital Signs Last Vital Signs Temp Pulse Resp BP Pulse Ox 97.5 F L 85 16 97/66 98 07/19/18 09:58 07/19/18 09:58 07/19/18 09:58 07/19/18 09:58 07/19/18 09:58 - Physical Exam Comments: 07/19/18 12:41 GENERAL: Awake, alert, and fully oriented, in no acute distress HEAD: No signs of trauma EYES: PERRLA, EOMI, sclera anicteric, conjunctiva clear ENT: Auricles normal inspection, hearing grossly normal, nares patent, oropharynx clear without exudates. Moist mucosa NECK: Normal ROM, supple, no lymphadenopathy, JVD, or masses LUNGS: Breath sounds equal, clear to auscultation bilaterally. No wheezes, and no crackles HEART: Regular rate and rhythm, normal S1 and S2, no murmurs, rubs or gallops ABDOMEN: Soft, nontender, normoactive bowel sounds. No guarding, no rebound. No masses EXTREMITIES: Normal range of motion, no edema. No clubbing or cyanosis. No cords, erythema, or tenderness NEUROLOGICAL: Normal speech, cranial nerves intact, negative pronator drift, 5/ 5 strength in all 4 extremities, normal sensation to light touch in all 4 extremities, normal cerebellar exam, normal gait, normal reflexes and tone SKIN: Warm, Dry, normal turgor, no rashes or lesions noted. <Star Castrejon - Last Filed: 07/19/18 15:07> Moderate Sedation - Procedure Monitoring Vital Signs: Procedure Monitoring Vital Signs Temperature 97.5 F L 07/19/18 09:58 Pulse Rate 85 07/19/18 09:58 Respiratory Rate 16 07/19/18 09:58 Blood Pressure 97/66 07/19/18 09:58 O2 Sat by Pulse Oximetry (%) 98 07/19/18 09:58 <Abilio Caraballo - Last Filed: 07/19/18 13:05> - Procedure Monitoring Vital Signs: Procedure Monitoring Vital Signs Temperature 97.5 F L 07/19/18 09:58 Pulse Rate 85 07/19/18 09:58 Respiratory Rate 16 07/19/18 09:58 Blood Pressure 97/66 07/19/18 09:58 O2 Sat by Pulse Oximetry (%) 98 07/19/18 09:58 <Star Castrejon - Last Filed: 07/19/18 15:07> Heart Score/ECG Review - History History: Slightly suspicious - Electrocardiogram EKG: Normal - Age Age: >/= 65 - Risk Factors Based on the list above the patient has:: 1-2 risk factors - Troponin Troponin: </= normal limit - Score Heart Score - Total: 3 #1 07/19/18 11:56 Twelve-lead EKG was performed and reviewed by me. Normal sinus rhythm, rate 66. Normal axis and intervals. No ST elevations or T-wave inversions <Star Castrejon - Last Filed: 07/19/18 15:07> ED Treatment Course - LABORATORY CBC & Chemistry Diagram: 07/19/18 13:34 07/19/18 13:34 <Star Castrejon - Last Filed: 07/19/18 15:07> Medical Decision Making - Medical Decision Making 07/19/18 11:58 72yo M hx essential tremor and vertigo presents to the ED with resolved vertiginous sxs and resolved CP, presents for check up so that dizziness does not return. Vitals with borderline hypotension, however previous BP in low 100s systolic. Pt asymptomatic at this time with normal exam. In light of a few seconds of chest pain 2 days ago, plan to check labs including tropx1, and reassess. 07/19/18 14:59 Completely asymtomatic in the ED Currently eating sandwich, well appearing Rpt BP 116/70 Labs wnl Pt encouraged to f/u with PMD Pt requests DC home Return precautions given I discussed the physical exam findings, ancillary test results and final diagnoses with the patient. I answered all of the patient's questions. The patient was satisfied with the care received and felt comfortable with the discharge plan and treatment plan. The patient will call their primary care physician within 24 hours to arrange follow-up and will return to the Emergency Department with any new, persistent or worsening symptoms. <Star Castrejon - Last Filed: 07/19/18 15:07> *DC/Admit/Observation/Transfer - Attestations Scribe Attestion: 07/19/18 13:05 Documentation prepared by Abilio Caraballo, acting as medical record coder for Star Castrejon MD. <Abilio Caraballo - Last Filed: 07/19/18 13:05> - Discharge Dispostion Decision to Admit order: No - Attestations Physician Attestion: 07/19/18 15:01 I, Dr. Star Castrejon MD, attest that this document has been prepared under my direction and personally reviewed by me in its entirety. I further attest, that it accurately reflects all work, treatment, procedures and medical decision -making performed by me. <Star Castrejon - Last Filed: 07/19/18 15:07> Diagnosis at time of Disposition: Vertigo, Chest pain, Dizziness - Discharge Dispostion Disposition: HOME Condition at time of disposition: Stable - Patient Instructions Printed Discharge Instructions: DI for Vertigo, DI for Chest Pain Additional Instructions: Follow up with your primary doctor as discussed within 1-2 days Return to the emergency department if you have any new, worsening, or concerning symptoms Print Language: MALTESE - Post Discharge Activity
--- NOTE | 2018-07-19 14:14 | EKG ---
Test Reason : Blood Pressure : / mmHG Vent. Rate : 065 BPM Atrial Rate : 065 BPM P-R Int : 208 ms QRS Dur : 084 ms QT Int : 372 ms P-R-T Axes : 060 058 054 degrees QTc Int : 386 ms NORMAL SINUS RHYTHM BORDERLINE LOW VOLTAGE QRS WHEN COMPARED WITH ECG OF 15-DEC-2017 10:16, NO SIGNIFICANT CHANGE WAS FOUND Confirmed by JESSICA GARCIA MD ([id number]) on 07/19/2018 2:14:16 PM Referred By: Confirmed By:JESSICA GARCIA MD
[2018-07-19 14:32] LABS: BASO % 0.8 % (0-2.0); EOS % 4.1 % (0-4.5); HEMATOCRIT 48.3 % (35.4-49); HEMOGLOBIN 16.5 GM/dL (11.7-16.9); LYMPH % 30.2 % (8-40); MCH 32.8 pg (25.7-33.7); MCHC 34.2 g/dl (32.0-35.9); MEAN CELL VOLUME 95.9 fl (80-96); MONO % 8.6 % (3.8-10.2); NEUT % 56.3 % (42.8-82.8); PLATELET COUNT 176 K/MM3 (134-434); RBC 5.03 M/mm3 (4.00-5.60); RDW 13.7 % (11.9-15.9); WHITE BLOOD COUNT 5.9 K/mm3 (4.0-10.0)
[2018-07-19 14:33] LABS: ALBUMIN 3.6 g/dl (3.4-5.0); ALK PHOS 83 U/L (45-117); ANION GAP 4 MMOL/L (8-16); BILIRUBIN,TOTAL 0.4 mg/dL (0.2-1); BLOOD UREA NITROGEN 14 mg/dL (7-18); CALCIUM 8.5 mg/dL (8.5-10.1); CHLORIDE 106 mmol/L (98-107); CO2 28 mmol/L (21-32); GLUCOSE,RANDOM 86 mg/dL (74-106); POTASSIUM 4.3 mmol/L (3.5-5.1); SGOT/AST < 3 U/L (15-37); SGPT/ALT 24 U/L (13-61); SODIUM 137 mmol/L (136-145); TOT PROT 7.7 g/dl (6.4-8.2)
[2018-07-19 15:24] VITALS: BP 114/60; PULSE 67; TEMP 97.1
--- NOTE | 2018-07-22 10:56 | EKG ---
Test Reason : Blood Pressure : / mmHG Vent. Rate : 066 BPM Atrial Rate : 066 BPM P-R Int : 206 ms QRS Dur : 082 ms QT Int : 382 ms P-R-T Axes : 047 017 027 degrees QTc Int : 400 ms NORMAL SINUS RHYTHM NORMAL ECG WHEN COMPARED WITH ECG OF 19-JUL-2018 10:07, NO SIGNIFICANT CHANGE WAS FOUND Confirmed by ANTONIO GRIFFIN MD ([id number]) on 07/22/2018 10:55:52 AM Referred By: Confirmed By:ANTONIO GRIFFIN MD
== END 2018-07-19 15:24 | disposition home or self-care (01) ==
LOC: JER 09:48
DX: R42 Dizziness and giddiness (principal); R07.9 Chest pain, unspecified
CPT/HCPCS: 36415; 71045-TC-FY; 80053; 84484; 85025; 93005; 93010; 99282-25

== ENCOUNTER 2020-12-15 13:26 | Emergency (ER) | payer OTHER ==
[2020-12-15 13:32] VITALS: BMI 27.6
[2020-12-15] MEDS ORDERED: ONDANSETRON 4 MG/2 ML VIAL IVPUSH ONE (14:58)
[2020-12-15] MEDS ORDERED: METOCLOPRAMIDE HCL INJECTION 10 MG/2 ML VIAL IVPUSH ONE (14:59)
[2020-12-15] MEDS ORDERED: FAMOTIDINE 20 MG/50 ML IVPB 20 MG/50 ML MG IVPB ONE ×2 (14:59→15:11)
[2020-12-15] MEDS ORDERED: LACTATED RINGERS SOLUTION 1000 ML INFUS.BAG IV ONE (15:07)
[2020-12-15] MEDS ORDERED: METOCLOPRAMIDE HCL INJECTION 10 MG/2 ML VIAL ONE (15:11)
[2020-12-15 15:25] LABS: EOS % 2.4 % (0-4.5); HEMATOCRIT 44.8 % (35.4-49); HEMOGLOBIN 15.6 GM/dL (11.7-16.9); LYMPH % 27.1 % (8-40); MCHC 34.8 g/dl (32.0-35.9); MONO % 8.1 % (3.8-10.2); NEUT % 61.4 % (42.8-82.8); PLATELET COUNT 226 10^3/uL (134-434); RBC 4.72 M/mm3 (4.00-5.60); RDW 13.7 % (11.9-15.9)
[2020-12-15] MEDS ORDERED: MECLIZINE HCL 25 MG TABLET (FP) PO ONE (15:39)
[2020-12-15 15:47] LABS: ALBUMIN 3.8 g/dl (3.4-5.0); CALCIUM 8.5 mg/dL (8.5-10.1)
[2020-12-15 15:52] LABS: BILIRUBIN,TOTAL 0.8 mg/dL (0.2-1); TOT PROT 7.8 g/dl (6.4-8.2)
[2020-12-15] MEDS ORDERED: MECLIZINE HCL 25 MG TABLET (FP) ONE (16:18)
[2020-12-15 18:00] VITALS: BP 127/72; PULSE 53; TEMP 97.6
== END 2020-12-15 18:48 | disposition home or self-care (01) ==
LOC: JER 13:26
PROC: 3E033GC Introduction of Other Therapeutic Substance into Peripheral Vein, Percutaneous Approach (ICD-10-PCS; principal; 2020-12-15)
PROC: 3E033GC Introduction of Other Therapeutic Substance into Peripheral Vein, Percutaneous Approach (ICD-10-PCS; 2020-12-15)
DX: R10.13 Epigastric pain (principal); R42 Dizziness and giddiness; K80.20 Calculus of gallbladder without cholecystitis without obstruction
CPT/HCPCS: 36415; 74177-TC; 76705-TC; 80053; 83690; 85025; 93005; 93010; 99285-25; C9803; Q9967; U0003; U0005

== ENCOUNTER 2021-12-17 11:31 | Emergency (ER) | payer OTHER ==
[2021-12-17 11:48] VITALS: BP 105/64; PULSE 76; RESP 16; TEMP 98.1; BMI 28.3
[2021-12-17] MEDS ORDERED: MECLIZINE HCL 25 MG TABLET (FP) PO ONE (15:04)
[2021-12-17] MEDS ORDERED: MECLIZINE HCL 25 MG TABLET (FP) ONE (15:08)
[2021-12-17] MEDS ORDERED: SODIUM CHLORIDE 0.9% 500 ML INFUS.BAG IV ONE (15:22)
[2021-12-17 15:54] LABS: BASO % 1.6 % (0-2.0); EOS % 4.5 % (0-4.5); HEMATOCRIT 43.5 % (35.4-49); HEMOGLOBIN 14.6 GM/dL (11.7-16.9); LYMPH % 28.9 % (8-40); MCH 31.2 pg (25.7-33.7); MCHC 33.6 g/dl (32.0-35.9); MEAN CELL VOLUME 92.9 fl (80-96); MEAN PLT VOLUME 7.7 fl (7.5-11.1); MONO % 7.6 % (3.8-10.2); NEUT % 57.4 % (42.8-82.8); PLATELET COUNT 210 10^3/uL (134-434); RBC 4.68 M/mm3 (4.00-5.60); RDW 14.4 % (11.9-15.9); WHITE BLOOD COUNT 6.4 K/mm3 (4.0-10.0)
[2021-12-17 16:16] LABS: CALCIUM 8.8 mg/dL (8.5-10.1)
[2021-12-17 16:17] LABS: ALBUMIN 3.4 g/dl (3.4-5.0); BLOOD UREA NITROGEN 13.2 mg/dL (7-18)
[2021-12-17 16:20] LABS: CREATININE 0.9 mg/dL (0.55-1.3)
[2021-12-17 16:22] LABS: BILIRUBIN,TOTAL 0.5 mg/dL (0.2-1); TOT PROT 7.2 g/dl (6.4-8.2)
== END 2021-12-17 18:02 | disposition home or self-care (01) ==
LOC: JER 11:31
DX: R42 Dizziness and giddiness (principal)
CPT/HCPCS: 36415; 80053; 84132; 85025; 93005; 93010; 99284-25

== ENCOUNTER 2022-04-21 11:06 | Emergency (ER) | payer OTHER ==
[2022-04-21 11:37] VITALS: BP 130/77; PULSE 91; RESP 18; TEMP 98; BMI 26.5
== END 2022-04-21 16:00 | disposition home or self-care (01) ==
LOC: JER 11:06
DX: U07.1 COVID-19 (principal)
CPT/HCPCS: 0241U-QW; 71046-TC-FY; 99284-25

== ENCOUNTER 2022-09-18 09:45 | Emergency (ER) | payer OTHER ==
[2022-09-18 10:01] VITALS: TEMP 98.1; BMI 30.2
[2022-09-18] MEDS ORDERED: METOCLOPRAMIDE HCL INJECTION 10 MG/2 ML VIAL IVPB ONE (10:12)
[2022-09-18] MEDS ORDERED: SODIUM CHLORIDE 0.9% 500 ML INFUS.BAG IV ONE (10:12)
[2022-09-18] MEDS ORDERED: METOCLOPRAMIDE HCL INJECTION 10 MG/2 ML VIAL ONE (10:34)
[2022-09-18 11:24] LABS: BASO % 0.9 % (0-2.0); EOS % 5.1 % (0-4.5); HEMATOCRIT 40.7 % (35.4-49); HEMOGLOBIN 14.4 GM/dL (11.7-16.9); MCH 32.7 pg (25.7-33.7); MCHC 35.5 g/dl (32.0-35.9); MEAN CELL VOLUME 92.3 fl (80-96); MEAN PLT VOLUME 8.6 fl (7.5-11.1); MONO % 7.7 % (3.8-10.2); NEUT % 65.3 % (42.8-82.8); PLATELET COUNT 183 10^3/uL (134-434); RBC 4.41 M/mm3 (4.00-5.60); RDW 13.9 % (11.9-15.9); WHITE BLOOD COUNT 5.7 K/mm3 (4.0-10.0)
[2022-09-18 11:54] LABS: POTASSIUM 4.1 mmol/L (3.5-5.1)
[2022-09-18 11:57] LABS: ALBUMIN 3.4 g/dl (3.4-5.0); BLOOD UREA NITROGEN 15.3 mg/dL (7-18); CALCIUM 8.7 mg/dL (8.5-10.1); MAGNESIUM 2.1 mg/dL (1.8-2.4)
[2022-09-18 12:00] LABS: CREATININE 0.9 mg/dL (0.55-1.3)
[2022-09-18 12:02] LABS: TOT PROT 6.9 g/dl (6.4-8.2)
[2022-09-18 12:04] LABS: BILIRUBIN,TOTAL 0.9 mg/dL (0.2-1)
[2022-09-18 13:58] VITALS: BP 110/60; PULSE 60; RESP 20
== END 2022-09-18 13:59 | disposition home or self-care (01) ==
LOC: JER 09:45
PROC: 3E033GC Introduction of Other Therapeutic Substance into Peripheral Vein, Percutaneous Approach (ICD-10-PCS; principal; 2022-09-18)
DX: R42 Dizziness and giddiness (principal); R11.0 Nausea
CPT/HCPCS: 36415; 80053; 82550; 83735; 84484; 85025; 93005; 93010; 96374; 99284-25

== ENCOUNTER 2023-01-08 04:54 | Day surgery (SDC) | payer OTHER ==
[2023-01-05 14:31] VITALS: BMI 30.2
[2023-01-08 13:36] VITALS: TEMP 97.8
[2023-01-08 13:41] VITALS: PULSE 49
[2023-01-08 13:45] VITALS: RESP 16
[2023-01-08 13:50] VITALS: BP 129/49
== END 2023-01-08 12:35 | disposition home or self-care (01) ==
LOC: JASU-ENDO 04:54
PROVIDERS: ATTEND Internal Medicine Gastroenterology
PROC: 0DB78ZX Excision of Stomach, Pylorus, Via Natural or Artificial Opening Endoscopic, Diagnostic (ICD-10-PCS; 2023-01-08)
PROC: 0DB68ZX Excision of Stomach, Via Natural or Artificial Opening Endoscopic, Diagnostic (ICD-10-PCS; 2023-01-08)
PROC: 0DB38ZX Excision of Lower Esophagus, Via Natural or Artificial Opening Endoscopic, Diagnostic (ICD-10-PCS; principal; 2023-01-08 10:15)
DX: K29.50 Unspecified chronic gastritis without bleeding (principal); K31.A19 Gastric intestinal metaplasia without dysplasia, unspecified site; K21.00 Gastro-esophageal reflux disease with esophagitis, without bleeding; K44.9 Diaphragmatic hernia without obstruction or gangrene
CPT/HCPCS: 88305-TC; 88342-TC

== ENCOUNTER 2023-03-22 20:08 | Emergency (ER) | payer OTHER ==
[2023-03-22 20:46] VITALS: BP 123/58; PULSE 60; RESP 18; TEMP 98.2; BMI 29.2
[2023-03-22] MEDS ORDERED: MECLIZINE HCL 25 MG TABLET (FP) PO ONE (21:17)
[2023-03-22] MEDS ORDERED: MECLIZINE HCL 25 MG TABLET (FP) ONE (21:22)
[2023-03-22 21:44] LABS: BASO % 0.8 % (0-2.0); EOS % 5.7 % (0-4.5); HEMATOCRIT 42.1 % (35.4-49); HEMOGLOBIN 14.5 GM/dL (11.7-16.9); LYMPH % 27.2 % (8-40); MCH 32.1 pg (25.7-33.7); MCHC 34.4 g/dl (32.0-35.9); MEAN CELL VOLUME 93.4 fl (80-96); MEAN PLT VOLUME 7.8 fl (7.5-11.1); MONO % 8.9 % (3.8-10.2); NEUT % 57.4 % (42.8-82.8); PLATELET COUNT 213 10^3/uL (134-434); RBC 4.51 M/mm3 (4.00-5.60); RDW 13.3 % (11.9-15.9); WHITE BLOOD COUNT 6.1 K/mm3 (4.0-10.0)
[2023-03-22 22:14] LABS: POTASSIUM 4.3 mmol/L (3.5-5.1)
[2023-03-22 22:16] LABS: CALCIUM 8.7 mg/dL (8.5-10.1)
[2023-03-22 22:17] LABS: ALBUMIN 3.5 g/dl (3.4-5.0); BLOOD UREA NITROGEN 11.1 mg/dL (7-18)
[2023-03-22 22:20] LABS: CREATININE 1.1 mg/dL (0.55-1.3)
[2023-03-22 22:21] LABS: TOT PROT 6.9 g/dl (6.4-8.2)
[2023-03-22 22:22] LABS: BILIRUBIN,TOTAL 0.3 mg/dL (0.2-1)
== END 2023-03-22 23:05 | disposition home or self-care (01) ==
LOC: JER 20:08
DX: R42 Dizziness and giddiness (principal)
CPT/HCPCS: 36415; 70450-TC; 80053; 85025; 93005; 93010; 99285-25

== ENCOUNTER 2023-05-14 10:35 | Emergency (ER) | payer OTHER ==
[2023-05-14 10:46] VITALS: BP 128/68; PULSE 76; RESP 18; TEMP 97.9; BMI 30.2
== END 2023-05-14 12:41 | disposition home or self-care (01) ==
LOC: JER 10:35
DX: R05.9 Cough, unspecified (principal); R07.0 Pain in throat; R06.02 Shortness of breath; J34.89 Other specified disorders of nose and nasal sinuses; Z20.822 Contact with and (suspected) exposure to COVID-19
CPT/HCPCS: 0241U-QW; 71046-TC-FY; 99284-25

== ENCOUNTER 2023-05-19 01:36 | Emergency (ER) | payer OTHER ==
[2023-05-19 01:42] VITALS: BMI 31.2
[2023-05-19] MEDS ORDERED: ALBUTEROL SO4 2.5/IPRATROPIUM 0.5 INH SOL 3 ML VIAL.NEB. NEB ONE ×3 (02:58→03:35)
[2023-05-19 03:27] LABS: BASO % 1.1 % (0-2.0); EOS % 11.4 % (0-4.5); HEMATOCRIT 41.1 % (35.4-49); LYMPH % 21.7 % (8-40); MCHC 34.1 g/dl (32.0-35.9); MEAN CELL VOLUME 93.8 fl (80-96); MEAN PLT VOLUME 8.2 fl (7.5-11.1); MONO % 9.6 % (3.8-10.2); NEUT % 56.2 % (42.8-82.8); PLATELET COUNT 233 10^3/uL (134-434); RBC 4.38 M/mm3 (4.00-5.60); WHITE BLOOD COUNT 6.3 K/mm3 (4.0-10.0)
[2023-05-19 03:45] LABS: ALBUMIN 3.6 g/dl (3.4-5.0); BLOOD UREA NITROGEN 10.3 mg/dL (7-18); CALCIUM 8.3 mg/dL (8.5-10.1); MAGNESIUM 2.1 mg/dL (1.8-2.4)
[2023-05-19 03:48] LABS: CREATININE 0.9 mg/dL (0.55-1.3)
[2023-05-19 03:50] LABS: BILIRUBIN,TOTAL 0.4 mg/dL (0.2-1); TOT PROT 7.3 g/dl (6.4-8.2)
[2023-05-19 03:53] LABS: N-TERMINAL BNP 25.2 pg/ml (5-450)
[2023-05-19] MEDS ORDERED: MONTELUKAST NA 5 MG TAB.CHEW PO ONE (04:32)
[2023-05-19] MEDS ORDERED: FUROSEMIDE 40 MG/4 ML INJECTABLE VIAL IVPUSH ONE (04:56)
[2023-05-19] MEDS ORDERED: AZITHROMYCIN 250 MG TABLET PO ONE (05:16)
[2023-05-19] MEDS ORDERED: AZITHROMYCIN 500 MG TABLET ONE (05:25)
[2023-05-19] MEDS ORDERED: FUROSEMIDE 40 MG/4 ML INJECTABLE VIAL ONE (05:26)
[2023-05-19] MEDS ORDERED: MONTELUKAST NA 10 MG TABLET ONE (05:26)
[2023-05-19 05:59] VITALS: BP 118/63; PULSE 80; RESP 21; TEMP 97.9
== END 2023-05-19 05:40 | disposition home or self-care (01) ==
LOC: JER 01:36
PROC: 3E033GC Introduction of Other Therapeutic Substance into Peripheral Vein, Percutaneous Approach (ICD-10-PCS; principal; 2023-05-19)
PROC: 3E0F7GC Introduction of Other Therapeutic Substance into Respiratory Tract, Via Natural or Artificial Opening (ICD-10-PCS; 2023-05-19)
DX: J40 Bronchitis, not specified as acute or chronic (principal); R05.9 Cough, unspecified; R06.02 Shortness of breath
CPT/HCPCS: 36415; 71045-TC-FY; 80053; 83735; 83880; 85025; 93005; 93010; 94640; 96374; 99285-25

== ENCOUNTER 2023-05-20 11:49 | Inpatient (IN) | payer OTHER ==
[2023-05-20] MEDS ORDERED: ALBUTEROL SO4 2.5/IPRATROPIUM 0.5 INH SOL 3 ML VIAL.NEB. NEB ONE ×2 (12:54→16:28)
[2023-05-20] MEDS ORDERED: methylPREDNISolone NA SUCC 125 MG/2 ML VIAL ONE (12:55)
[2023-05-20 12:59] LABS: BASO % 0.6 % (0-2.0); EOS % 8.9 % (0-4.5); HEMATOCRIT 41.9 % (35.4-49); HEMOGLOBIN 14.3 GM/dL (11.7-16.9); LYMPH % 18.1 % (8-40); MCH 31.8 pg (25.7-33.7); MEAN CELL VOLUME 93.5 fl (80-96); MEAN PLT VOLUME 7.3 fl (7.5-11.1); MONO % 9.2 % (3.8-10.2); NEUT % 63.2 % (42.8-82.8); PLATELET COUNT 240 10^3/uL (134-434); RBC 4.48 M/mm3 (4.00-5.60); RDW 13.9 % (11.9-15.9); WHITE BLOOD COUNT 6.1 K/mm3 (4.0-10.0)
[2023-05-20 13:02] LABS: VENOUS BASE EXCESS 1.3 mmol/L (-2-2); VENOUS O2 SATURATION 91.3 % (70-80); VENOUS PCO2 41.7 mmHg (38-52); VENOUS PH 7.413 (7.310-7.410)
[2023-05-20] MEDS: methylPREDNISolone NA SUCC 125 MG/2 ML VIAL IVPB ONE (13:02)
[2023-05-20] MEDS: ALBUTEROL SO4 2.5/IPRATROPIUM 0.5 INH SOL 3 ML VIAL.NEB. NEB SCH ×2 (13:02→16:33)
[2023-05-20 13:11] LABS: INR 1.09 (0.83-1.09); PROTHROMBIN TIME (PATIENT) 12.6 SEC (9.7-13.0)
[2023-05-20 13:17] LABS: CALCIUM 8.5 mg/dL (8.5-10.1)
[2023-05-20 13:18] LABS: ALBUMIN 3.6 g/dl (3.4-5.0); BLOOD UREA NITROGEN 8.9 mg/dL (7-18); MAGNESIUM 2.1 mg/dL (1.8-2.4)
[2023-05-20 13:21] LABS: CREATININE 0.9 mg/dL (0.55-1.3)
[2023-05-20 13:23] LABS: BILIRUBIN,TOTAL 0.5 mg/dL (0.2-1); TOT PROT 7.3 g/dl (6.4-8.2)
[2023-05-20 13:26] LABS: N-TERMINAL BNP 7.8 pg/ml (5-450)
[2023-05-20] MEDS ORDERED: CEFTRIAXONE 1 GM/50 ML BAG ONE (14:58)
[2023-05-20] MEDS: CEFTRIAXONE 1,000 MG in DEXTROSE 5%-WATER - 50 ML IVPB ONE (14:58)
[2023-05-20] MEDS ORDERED: MECLIZINE HCL 25 MG TABLET (FP) PO PRN (15:23)
[2023-05-20] MEDS: AZITHROMYCIN IVPB 500 MG in DEXTROSE 5%-WATER - 250 ML IVPB ONE (15:28)
[2023-05-20] MEDS ORDERED: AZITHROMYCIN IVPB 500 MG/250 ML BAG IVPB ONE (15:30)
[2023-05-20] MEDS: ASPIRIN COATED 81 MG TABLET.EC PO SCH (16:26)
[2023-05-20] MEDS ORDERED: methylPREDNISolone NA SUCC 40 MG/1 ML VIAL ONE (18:46)
[2023-05-20] MEDS: methylPREDNISolone NA SUCC 40 MG/1 ML VIAL IVPUSH SCH (18:52)
[2023-05-20] MEDS ORDERED: ATORVASTATIN CA 10 MG TABLET (FP) ONE (20:51)
[2023-05-20] MEDS: HEPARIN NA (PORCINE) 5,000 UNITS/ML 1ML VIAL SQ SCH (21:05)
[2023-05-20] MEDS: ATORVASTATIN CA 10 MG TABLET (FP) PO SCH (21:05)
[2023-05-21] MEDS ORDERED: methylPREDNISolone NA SUCC 40 MG/1 ML VIAL ONE (01:26)
[2023-05-21 08:15] LABS: BASO % 0.1 % (0-2.0); HEMATOCRIT 44.4 % (35.4-49); HEMOGLOBIN 14.9 GM/dL (11.7-16.9); LYMPH % 8.2 % (8-40); MCH 31.9 pg (25.7-33.7); MCHC 33.5 g/dl (32.0-35.9); MONO % 1.9 % (3.8-10.2); NEUT % 89.8 % (42.8-82.8); PLATELET COUNT 277 10^3/uL (134-434); RBC 4.67 M/mm3 (4.00-5.60); RDW 13.9 % (11.9-15.9); WHITE BLOOD COUNT 11.3 K/mm3 (4.0-10.0)
[2023-05-21 08:37] LABS: POTASSIUM 4.4 mmol/L (3.5-5.1)
[2023-05-21 08:45] LABS: BLOOD UREA NITROGEN 17.9 mg/dL (7-18); MAGNESIUM 2.3 mg/dL (1.8-2.4)
[2023-05-21 08:48] LABS: CREATININE 1.2 mg/dL (0.55-1.3)
[2023-05-21 08:49] LABS: BILIRUBIN,TOTAL 0.4 mg/dL (0.2-1)
[2023-05-21 08:50] LABS: TOT PROT 8.2 g/dl (6.4-8.2)
[2023-05-21] MEDS: PRIMIDONE 50 MG TABLET PO SCH (11:00)
[2023-05-21] MEDS: FAMOTIDINE 20 MG TABLET PO SCH (11:00)
[2023-05-21] MEDS: AZITHROMYCIN 250 MG TABLET PO SCH (11:31)
[2023-05-22 04:36] VITALS: BMI 30.5
[2023-05-22 09:45] VITALS: RESP 20
[2023-05-22 13:45] VITALS: BP 121/76; PULSE 73; TEMP 98.4
== END 2023-05-22 16:00 | disposition home or self-care (01) | DRG 203 ==
LOC: JER 11:49 → JERBED 12:31 → OBSVTOIN 15:33 → J7W 05-22 02:31
PROVIDERS: ADMIT Family Medicine; ATTEND Family Medicine
DX: J40 Bronchitis, not specified as acute or chronic (principal); K21.9 Gastro-esophageal reflux disease without esophagitis; I10 Essential (primary) hypertension; E78.5 Hyperlipidemia, unspecified; H81.10 Benign paroxysmal vertigo, unspecified ear; K44.9 Diaphragmatic hernia without obstruction or gangrene; R09.02 Hypoxemia
CPT/HCPCS: 0241U-QW; 36415; 71045-TC-FY; 80053; 82803; 83036; 83735; 83880; 84443; 84484; 85025; 85610; 85730; 87633; 93005; 93010; 94640; 94761; 96374; 99285-25; G0378; J1644

== ENCOUNTER 2023-05-24 16:32 | Emergency (ER) | payer OTHER ==
[2023-05-24 17:10] VITALS: BP 107/66; PULSE 77; RESP 24; TEMP 98; BMI 30.2
[2023-05-24] MEDS: ALBUTEROL SO4 2.5/IPRATROPIUM 0.5 INH SOL 3 ML VIAL.NEB. NEB SCH (18:12)
[2023-05-24] MEDS ORDERED: ALBUTEROL SO4 2.5/IPRATROPIUM 0.5 INH SOL 3 ML VIAL.NEB. NEB ONE (18:13)
[2023-05-24 18:50] LABS: BASO % 0.3 % (0-2.0); EOS % 0.2 % (0-4.5); HEMATOCRIT 42.3 % (35.4-49); HEMOGLOBIN 14.2 GM/dL (11.7-16.9); LYMPH % 15.4 % (8-40); MCH 31.6 pg (25.7-33.7); MCHC 33.6 g/dl (32.0-35.9); MEAN CELL VOLUME 94.1 fl (80-96); MEAN PLT VOLUME 7.8 fl (7.5-11.1); MONO % 11.2 % (3.8-10.2); NEUT % 72.9 % (42.8-82.8); PLATELET COUNT 248 10^3/uL (134-434); RBC 4.49 M/mm3 (4.00-5.60); RDW 13.6 % (11.9-15.9); WHITE BLOOD COUNT 11.8 K/mm3 (4.0-10.0)
[2023-05-24 19:03] LABS: POTASSIUM 4.7 mmol/L (3.5-5.1)
[2023-05-24 19:06] LABS: ALBUMIN 3.2 g/dl (3.4-5.0); BLOOD UREA NITROGEN 19.8 mg/dL (7-18)
[2023-05-24 19:08] LABS: INR 1.02 (0.83-1.09); PROTHROMBIN TIME (PATIENT) 11.8 SEC (9.7-13.0)
[2023-05-24 19:10] LABS: BILIRUBIN,TOTAL 0.4 mg/dL (0.2-1); TOT PROT 6.9 g/dl (6.4-8.2)
[2023-05-24] MEDS ORDERED: guaiFENesin 200 MG/10 ML 10 ML UNIT-DOSE CUPS ONE (20:10)
[2023-05-24] MEDS: guaiFENesin 200 MG/10 ML 10 ML UNIT-DOSE CUPS PO ONE (20:12)
== END 2023-05-24 21:48 | disposition home or self-care (01) ==
LOC: JER 16:32
PROC: 3E0F8GC Introduction of Other Therapeutic Substance into Respiratory Tract, Via Natural or Artificial Opening Endoscopic (ICD-10-PCS; principal; 2023-05-24)
DX: R06.02 Shortness of breath (principal)
CPT/HCPCS: 0241U-QW; 36415; 71045-TC-FY; 80053; 84484; 85025; 85610; 85730; 93005; 93010; 94640; 99285-25

== ENCOUNTER 2023-06-26 08:10 | Emergency (ER) | payer OTHER ==
[2023-06-26 08:47] VITALS: BMI 30.1
[2023-06-26] MEDS ORDERED: ACETAMINOPHEN 500 MG TABLET (FP) ONE (10:00)
[2023-06-26] MEDS: ACETAMINOPHEN 500 MG TABLET (FP) PO ONE (10:05)
[2023-06-26 10:41] LABS: INR 1.04 (0.83-1.09); PROTHROMBIN TIME (PATIENT) 12.1 SEC (9.7-13.0)
[2023-06-26 10:43] LABS: BASO % 0.7 % (0-2.0); EOS % 1.6 % (0-4.5); HEMATOCRIT 41.3 % (35.4-49); LYMPH % 20.2 % (8-40); MCH 31.8 pg (25.7-33.7); MCHC 33.9 g/dl (32.0-35.9); MEAN CELL VOLUME 93.9 fl (80-96); MEAN PLT VOLUME 7.7 fl (7.5-11.1); MONO % 14.7 % (3.8-10.2); NEUT % 62.8 % (42.8-82.8); PLATELET COUNT 198 10^3/uL (134-434); WHITE BLOOD COUNT 6.2 K/mm3 (4.0-10.0)
[2023-06-26 10:44] LABS: ACTIVATED PTT 30.3 SECONDS (25.2-36.5)
[2023-06-26 10:51] LABS: POTASSIUM 3.8 mmol/L (3.5-5.1)
[2023-06-26 10:53] LABS: ALBUMIN 3.2 g/dl (3.4-5.0); BLOOD UREA NITROGEN 13.9 mg/dL (7-18); CALCIUM 8.6 mg/dL (8.5-10.1); MAGNESIUM 2.1 mg/dL (1.8-2.4)
[2023-06-26 10:58] LABS: BILIRUBIN,TOTAL 0.4 mg/dL (0.2-1); TOT PROT 6.7 g/dl (6.4-8.2)
[2023-06-26 11:01] LABS: N-TERMINAL BNP 57.9 pg/ml (5-450)
[2023-06-26 14:14] VITALS: BP 105/64; PULSE 78; RESP 19; TEMP 97.9
== END 2023-06-26 14:14 | disposition home or self-care (01) ==
LOC: JER 08:10
DX: R07.9 Chest pain, unspecified (principal); R05.9 Cough, unspecified; U07.1 COVID-19
CPT/HCPCS: 0241U-QW; 36415; 71045-TC-FY; 80053; 83735; 83880; 84484; 85025; 85610; 85730; 93005; 93010; 99285-25